=== PATIENT | male | born 1955 | race Caucasian/White ===

== ENCOUNTER 2019-08-22 10:57 | Emergency (ER) | payer MEDICARE ==
[2019-08-22] MEDS ORDERED: Sodium Chloride 0.9% 1,000 ML IV ONE (11:03)
--- NOTE | 2019-08-22 11:17 | EDM.PDOC ---
ED HPI GENERAL MEDICAL PROBLEM - General Chief Complaint: General Stated Complaint: weakness Time Seen by Provider: 08/22/19 10:57 Source of Information: Reports: Patient, EMS, EMS Notes Reviewed History Limitations: Reports: No Limitations - History of Present Illness INITIAL COMMENTS - FREE TEXT/NARRATIVE: Patient comes into the emergency department with EMS with complaint of nausea, weakness, dizziness, numbness to the right hand. States his symptoms have been getting progressively worse over the course of the last 2 days. His morning when he woke up he states that they were the worst they've been and he was unable to get out and extremely dizzy and nauseated. He states he has a knot in the right side of his shoulder which is causing some tingling and numbness in his hand. He denies having any strength discrepancies between arms or legs. But states his overall his weakness, nausea, fatigue, and malaise has increased since last night. He did not have a thermometer to check his temperature but he did feel chilled last night. 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 4 mg Zofran was provided the patient prior to arrival. Patient denies any chest pain he states that he's felt fairly healthy and has not been seen by a primary care provider in a long time. Patient currently is still feeling nauseated. His right shoulder discomfort is palpable and the numbness and tingling does decrease with the use of palpation over the right shoulder region He said the discomfort was worse in the ambulance but is getting better now while in the ER. Onset: Gradual Duration: Other Location: Reports: Other Severity: Moderate Improves with: Reports: None Worsens with: Reports: None Context: Reports: Other Associated Symptoms: Reports: Cough, Diaphoresis, Headaches, Loss of Appetite, Malaise, Nausea/Vomiting, Weakness Right Shoulder Pain Score (Numeric/FACES): 5 - Related Data Allergies Allergy/AdvReac Type Severity Reaction Status Date / Time No Known Allergies Allergy Verified 08/22/19 12:29 Home Meds: Home Meds Lisinopril 10 mg DAILY 08/22/19 [History] atorvaSTATin [Lipitor] 10 mg DAILY 08/22/19 [History] glipiZIDE [Glucotrol] 10 mg DAILY 08/22/19 [History] ED ROS GENERAL - Review of Systems Review Of Systems: See Below Constitutional: Reports: Malaise, Weakness, Fatigue, Decreased Appetite HEENT: Reports: No Symptoms Respiratory: Reports: Cough Cardiovascular: Reports: Dyspnea on Exertion, Lightheadedness Endocrine: Reports: Fatigue GI/Abdominal: Reports: Anorexia, Nausea, Vomiting : Reports: No Symptoms Musculoskeletal: Reports: No Symptoms Skin: Reports: Pallor Neurological: Reports: No Symptoms Psychiatric: Reports: No Symptoms Hematologic/Lymphatic: Reports: No Symptoms Immunologic: Reports: No Symptoms ED EXAM, GENERAL - Physical Exam Exam: See Below (NIH- 0, recheck NIH-0) Exam Limited By: No Limitations General Appearance: Alert, WD/WN, No Apparent Distress Eye Exam: Bilateral Eye: EOMI, Normal Inspection, PERRL Ears: Normal External Exam, Normal Canal Ear Exam: Bilateral Ear: Auricle Normal, Canal Normal Nose: Normal Inspection, Normal Mucosa Head: Atraumatic, Normocephalic Neck: Normal Inspection, Supple, Non-Tender, Full Range of Motion Respiratory/Chest: No Respiratory Distress, No Accessory Muscle Use, Decreased Breath Sounds Cardiovascular: Normal Peripheral Pulses, Regular Rate, Rhythm Back Exam: Normal Inspection Extremities: Normal Inspection, Normal Range of Motion Neurological: Alert, Oriented, Other (numbness/tingling right arm. But decrease in discomfort when palpating right shoulder. Reproducable discomfort and tingling sensation. weak, tired, and continued vomitting. ) Skin Exam: Warm, Dry, Intact, Normal Color Course - Vital Signs Last Recorded V/S: Last Vital Signs Temp 36.2 C 08/22/19 10:57 Pulse 73 08/22/19 10:57 Resp 20 08/22/19 10:57 BP 128/83 08/22/19 12:52 Pulse Ox 98 08/22/19 10:57 - Orders/Labs/Meds Orders: Active Orders 24 hr Category Date Time Status EKG Documentation Completion [RC] STAT Care 08/22/19 11:03 Active CULTURE BLOOD [BC] Stat Lab 08/22/19 11:25 Received CULTURE BLOOD [BC] Stat Lab 08/22/19 11:33 Results Blood Culture x2 Reflex Set [OM.PC] Stat Oth 08/22/19 11:03 Ordered Labs: Laboratory Tests 08/22/19 08/22/19 08/22/19 Range/Units 11:25 11:25 11:25 WBC 7.9 (4.0-10.0) x10^3/uL RBC 4.96 (4.5-6.0) x10^6/uL Hgb 15.8 (14.0-18.0) g/dL Hct 43.3 (40.0-52.0) % MCV 87.3 (78.0-93.0) fL MCH 31.9 (26.0-32.0) pg MCHC 36.5 H (32.0-36.0) g/dL RDW Coeff of Pelon 12.6 (10.0-15.0) % Plt Count 140 (130-400) x10^3/uL Add Manual Diff Yes Neutrophils % (Manual) 83 H (50-80) % Lymphocytes % (Manual) 9 L (25-50) % Monocytes % (Manual) 6 (2-11) % Eosinophils % (Manual) 2 (0-4) % Platelet Estimate Decreased L Giant Platelets Rare H Sodium 140 (69-191) mmol/L Potassium 4.1 (1.5-9.9) mmol/L Chloride 103 (54-184) mmol/L Carbon Dioxide 22 (21-32) mmol/L Anion Gap 19.1 (10-20) mmol/L BUN 12 (7-18) mg/dL Creatinine 1.1 (0.70-1.30) mg/dL Est Cr Clr Drug Dosing TNP Estimated GFR (MDRD) > 60 Glucose 198 H (74-106) mg/dL Lactic Acid 2.4 H* (0.4-2.0) mmol/L Calcium 8.6 (8.5-10.1) mg/dL Corrected Calcium 9.00 (8.5-10.1) mg/dL Total Bilirubin 1.9 H (0.2-1.0) mg/dL AST 20 (15-37) U/L ALT 22 (16-63) U/L Alkaline Phosphatase 96 (46-116) U/L Troponin I < 0.017 (<=0.056) ng/mL NT-Pro-B Natriuret Pep 212 H (<=125) pg/mL Total Protein 7.1 (6.4-8.2) g/dL Albumin 3.5 (3.4-5.0) g/dL Globulin 3.6 Albumin/Globulin Ratio 0.97 Meds: Medications Discontinued Medications Generic Name Dose Route Start Last Admin Trade Name Vickey PRN Reason Stop Dose Admin Sodium Chloride 1,000 mls @ 999 mls/hr 08/22/19 11:03 08/22/19 11:00 Normal Saline IV 08/22/19 12:03 999 mls/hr ONETIME ONE Administration Ondansetron HCl 4 mg 08/22/19 11:45 08/22/19 12:25 Zofran IVPUSH 08/22/19 11:46 4 mg ONETIME ONE Administration Departure - Departure Time of Disposition: 12:25 Disposition: DC/Tfer to Acute Hospital 02 Condition: Good Clinical Impression: CVA, Cerebrovascular accident Nausea & vomiting Qualifiers: Vomiting type: unspecified Vomiting Intractability: unspecified Qualified Code( s): R11.2 - Nausea with vomiting, unspecified - Discharge Information *PRESCRIPTION DRUG MONITORING PROGRAM REVIEWED*: Not Applicable *COPY OF PRESCRIPTION DRUG MONITORING REPORT IN PATIENT PANCHO: Not Applicable Forms: Interfacility Transfer EMTALA - My Orders Last 24 Hours: My Active Orders 08/22/19 11:03 EKG Documentation Completion [RC] STAT Blood Culture x2 Reflex Set [OM.PC] Stat 08/22/19 11:25 CULTURE BLOOD [BC] Stat 08/22/19 11:33 CULTURE BLOOD [BC] Stat - Assessment/Plan Last 24 Hours: My Active Orders 08/22/19 11:03 EKG Documentation Completion [RC] STAT Blood Culture x2 Reflex Set [OM.PC] Stat 08/22/19 11:25 CULTURE BLOOD [BC] Stat 08/22/19 11:33 CULTURE BLOOD [BC] Stat Assessment:: 1. nausea 2. vomiting 3. fatigue 4. Weakness 5. Evolving Cerebellar infarct Plan: 1. Labs completed in the ER. Results reviewed with the patient 2. X-ray of the chest clean the ER. Results reviewed with the patient 3. IV fluids initiated in the ER 4. Zofran 4 mg IV given in the emergency room for continued nausea and vomiting 5. 12:15 Contact made with [facility] regarding CT study findings. 6. 12:25 Neurology is unavailable at this time. However, ER MD contacted and willing to accept care of this patient needing further testing and management. 7. Patient will be transported via [facility] service for further evaluation and management. 8. All questions and concerns addressed prior to discharge.
--- NOTE | 2019-08-22 11:34 | CR ---
[id number] RAD/RAD Chest PA or AP 1V EXAM: SINGLE VIEW CHEST. INDICATION: DECREASED BREATH SOUNDS COMPARISON: NO PREVIOUS SIMILAR EXAM IS AVAILABLE FINDINGS: There are mild bibasilar hypoventilatory changes There may be a small right effusion The cardiomediastinal contour is moderately enlarged IMPRESSION: MILD BIBASILAR HYPOVENTILATORY CHANGE SMALL RIGHT EFFUSION Nicholas Yung MD 08/22/19 [id number] Thank you for allowing us to participate in the care of your patient.
[2019-08-22] MEDS ORDERED: Ondansetron 4 MG/2 ML SDV IVPUSH ONE (11:45)
[2019-08-22 12:07] LABS: ANION GAP 19.1 mmol/L (10-20); CHLORIDE,CL 103 mmol/L (54-184); SODIUM,NA 140 mmol/L (69-191)
--- NOTE | 2019-08-22 12:10 | CT ---
[id number] CT/CT Head WO IV EXAM: CT Head WO IV CLINICAL DATA: DIZZY, WEAKNESS, NUMBNESS. COMPARISON STUDY: None FINDINGS: Focal area of hypodensity in the right cerebellar hemisphere. Appearance is most consistent with subacute ischemic change. Multiple scattered areas of hypodensity in the bilateral cerebral hemispheres consistent with small parenchymal infarctions resulting in encephalomalacia. Findings are most prominent in the bifrontal lobes. There are also changes of chronic small vessel disease in the subcortical white matter of both cerebral hemispheres. No evidence of an acute infarction or intracranial hemorrhage. No hydrocephalus. IMPRESSION: Focal area of right cerebellar hemisphere hypodensity most consistent with evolving subacute infarction. Multiple chronic findings are described above. Ronald Bey MD 08/22/19 [id number] Thank you for allowing us to participate in the care of your patient.
== END 2019-08-22 13:10 | disposition short-term general hospital (02) ==
LOC: VM.ED 10:57
DX: I63.9 Cerebral infarction, unspecified (principal); R11.2 Nausea with vomiting, unspecified; R29.700 NIHSS score 0
CPT/HCPCS: 36415; 70450; 71045; 80053; 83605; 83880; 84484; 85025; 87040; 87804; 93005; 96361; 96374; 99285; J2405; J7030